=== PATIENT | female | born 1955 | race Hispanic/Latino ===

== ENCOUNTER 2017-06-30 06:37 | Day surgery (SDC) | payer OTHER ==
[2017-06-30] MEDS ORDERED: WATER FOR IRRIG STERILE IR ONE (07:25)
[2017-06-30] MEDS ORDERED: DIPRIVAN 10 MG/ML IV ONE ×3 (07:35→09:03)
--- NOTE | 2017-06-30 08:26 | Anesthesia Consultation ---
Anesthesia Consult and Med Hx Date of service: 06/30/17 - Airway Anesthetic Teeth Evaluation: Good ROM Head & Neck: Adequate Mental/Hyoid Distance: Adequate Mallampati Class: Class II Intubation Access Assessment: Probably Good - Pulmonary Exam CTA: Yes - Cardiac Exam Cardiac Exam: RRR - Pre-Operative Health Status ASA Pre-Surgery Classification: ASA2 Proposed Anesthetic Plan: MAC - Pulmonary Hx Smoking: No Hx Sleep Apnea: No - Cardiovascular System Hx Hypertension: Yes Hx Percutaneous Transluminal Coronary Angioplasty (PTCA): Yes Hx Peripheral Vascular Disease: No - Central Nervous System Hx Neuromuscular Disorder: Yes (constant pain in BLE and throughout body) Hx Psychiatric Problems: No - Gastrointestinal Hx Gastroesophageal Reflux Disease: Yes - Endocrine Hx Renal Disease: No Hx Hyperthyroidism: No - Hematic Hx Anemia: No Hx Sickle Cell Disease: No - Other Systems Hx Alcohol Use: No Hx Substance Use: No Hx Cancer: No Hx Obesity: No
--- NOTE | 2017-06-30 08:26 | Anesthesia Day of Surgery ---
Anesthesia Day of Surgery - Day of Surgery Patient Examined: Yes Patient H&P Reviewed: Yes Patient is NPO: Yes
[2017-06-30] MEDS ORDERED: NACL 0.9% 1000 ML 1,000 ML IV SCH (09:00)
--- NOTE | 2017-06-30 09:32 | Short Stay Summary ---
Short Stay Documentation - Allergies and Medications Current Medications: Allergies No Known Allergies Allergy (Verified 06/30/17 07:29) Home Medications Medication Instructions Recorded Confirmed Last Taken Type AtorvaSTATin 10 mg PO DAILY 06/30/17 06/30/17 06/29/17 History Gabapentin 20 mg PO DAILY 06/30/17 06/30/17 06/29/17 History Lisinopril 12.5 mg PO DAILY 06/30/17 06/30/17 06/29/17 History Active Medications Sodium Chloride (Nacl 0.9% 1000 Ml) 1,000 mls @ 50 mls/hr IV DIRECT NISHA Last Admin: 06/30/17 08:45 Dose: 50 mls/hr - Brief post op/procedure progress note Date of procedure: 06/30/17 Pre-op diagnosis: 1. GERD 2. Epigastric pain 3. Colon cancer screening Post-op diagnosis: same (EGD: 1. GERD 2. Small Hiatal hernia 3. Gastritis Colonoscopy: 1. Diverticulosis coli 2. Internal hemorrhoids 3. Poor prep) Procedure: 1. EGD with biopsy 2. Colonoscopy Anesthesia: MAC Findings: as above Surgeon: MARIA ISABEL LLAMAS Estimated blood loss: none Pathology: list (1. Antrum) Condition: stable - Disposition Condition at discharge: Stable Disposition: DC-01 TO HOME OR SELFCARE Short Stay Discharge Plan Activity: no restrictions Weight Bearing Status: Full Weight Bearing Diet: regular, low salt Follow up with: JUANI WALDROP [Other] - 7 Days
[2017-06-30] MEDS ORDERED: XYLOCAINE MPF 2% ONE (10:00)
[2017-06-30 10:20] VITALS: BP 122/64
--- NOTE | 2017-06-30 10:59 | Post Anesthesia Evaluation ---
- Post Anesthesia Evaluation Patient Participated: Yes Airway Patent: Yes Stable Respiratory Function: Yes Nausea/Vomiting: No Temp > 96.8F: Yes Pain Manageable: Yes Adequeate Hydration: Yes Anesthesia Complications: No Block Receding Appropriately: Not Applicable Patient on Ventilator: No
== END 2017-06-30 06:38 | disposition home or self-care (01) ==
LOC: GIO 06:37
PROVIDERS: ATTEND Internal Medicine Gastroenterology
DX: Z12.11 Encounter for screening for malignant neoplasm of colon (principal); K57.30 Diverticulosis of large intestine without perforation or abscess without bleeding; K64.0 First degree hemorrhoids; K44.9 Diaphragmatic hernia without obstruction or gangrene; K29.50 Unspecified chronic gastritis without bleeding; K21.9 Gastro-esophageal reflux disease without esophagitis; I25.10 Atherosclerotic heart disease of native coronary artery without angina pectoris; I10 Essential (primary) hypertension; E78.5 Hyperlipidemia, unspecified; Z98.890 Other specified postprocedural states; Z86.010 Personal history of colon polyps; Z98.61 Coronary angioplasty status
CPT/HCPCS: 43239; 45378; 88305; 88342; J2704; J7030